=== PATIENT | female | born 1995 | race Caucasian/White ===

== ENCOUNTER 2024-07-08 15:33 | Emergency (ER) | payer BC ==
[~2024-07-08] VITALS: Ht 167.6 cm; Wt 64.0 kg
[2024-07-08] MEDS ORDERED: MORPHINE SULFATE INJ 4 MG/ML DISP.SYRIN ONE (15:56)
[2024-07-08] MEDS ORDERED: ONDANSETRON HCL/PF 4 MG/2 ML VIAL ONE (15:56)
[2024-07-08] MEDS ORDERED: TDAP [DIPH/PERTUSSIS/TET] 0.5 ML VIAL IM ONE (15:57)
[2024-07-08] MEDS: MORPHINE SULFATE 8 MG/ML VIAL IV ONE (16:00)
[2024-07-08] MEDS: ONDANSETRON HCL/PF 4 MG/2 ML VIAL IV ONE (16:00)
[2024-07-08] MEDS: TDAP [DIPH/PERTUSSIS/TET] 0.5 ML VIAL IM ONE (16:00)
[2024-07-08] MEDS ORDERED: MORPHINE SULFATE INJ 2 MG/ML DISP.SYRIN ONE (16:27)
[2024-07-08] MEDS: MORPHINE SULFATE INJ 2 MG/ML DISP.SYRIN IV ONE (16:30)
[2024-07-08] MEDS ORDERED: RABIES VACCINE (PCEC)/PF 1 EA KIT IM ONE (16:37)
[2024-07-08] MEDS: RABIES IMMUNE GLOBULIN/PF 150 UNIT/ML VIAL IM ONE (17:05)
[2024-07-08] MEDS: RABIES VACCINE (PCEC)/PF 1 EA KIT IM ONE (17:10)
[2024-07-08] MEDS ORDERED: ACET-2030 PO (17:37)
[2024-07-08] MEDS ORDERED: ONDA4TAB5 PO (17:37)
[2024-07-08] MEDS ORDERED: AMOX-430 PO (17:50)
[2024-07-08] MEDS ORDERED: DOXY100C2 PO (17:50)
[2024-07-08 18:11] VITALS: BP 120/75; TEMP 98.2; O2SAT 98
== END 2024-07-08 17:55 | disposition home or self-care (01) ==
LOC: ER 15:46
DX: S61.431A Puncture wound without foreign body of right hand, initial encounter (principal); R11.0 Nausea; F32.A Depression, unspecified; F41.9 Anxiety disorder, unspecified; Z88.1 Allergy status to other antibiotic agents; Z88.2 Allergy status to sulfonamides; W64.XXXA Exposure to other animate mechanical forces, initial encounter; Y93.89 Activity, other specified; Y92.89 Other specified places as the place of occurrence of the external cause; Y99.8 Other external cause status
CPT/HCPCS: 90375; 99284; 90675; 96374; 96375; 90472; 90471; 90715; 73130; 96372; J2270 ×3; J2405; A6403 ×2

== ENCOUNTER 2024-07-11 10:33 | Emergency (ER) | payer BC ==
[~2024-07-11] VITALS: Ht 177.8 cm; Wt 63.5 kg
[~2024-07-11 10:33] MED LIST: ACET-2030 PO; AMOX-430 PO; DOXY100C2 PO; ONDA4TAB5 PO
[2024-07-11 10:55] VITALS: BP 101/69; TEMP 98.1; O2SAT 98
== END 2024-07-11 11:30 | disposition home or self-care (01) ==
LOC: ER 10:40
DX: S61.411D Laceration without foreign body of right hand, subsequent encounter (principal); Z88.1 Allergy status to other antibiotic agents; Z88.2 Allergy status to sulfonamides; W64.XXXD Exposure to other animate mechanical forces, subsequent encounter